=== PATIENT | female | born 1965 | race Caucasian/White ===

== ENCOUNTER 2019-04-16 05:08 | Emergency (ER) | payer SELFPAY ==
[~2019-04-16] VITALS: Ht 170.2 cm; Wt 59.9 kg
[~2019-04-16 05:08] MED LIST: NITR-58 PO; PHEN-538 PO
[2019-04-16 05:16] VITALS: Ht 170.2 cm; Wt 59.9 kg
[2019-04-16 07:25] VITALS: BP 133/76; PULSE 75; RESP 18
== END 2019-04-16 07:25 | disposition home or self-care (01) ==
LOC: E/R 05:08
DX: R39.9 Unspecified symptoms and signs involving the genitourinary system (principal); I10 Essential (primary) hypertension; F17.210 Nicotine dependence, cigarettes, uncomplicated; Z59.0 Homelessness
CPT/HCPCS: 81003; 99283